=== PATIENT | female | born 1995 | race Caucasian/White ===

== ENCOUNTER 2020-08-25 | Outpatient (REF) | payer OTHER, SELFPAY ==
[2020-08-29 13:32] LABS: H Pylori Breath Test NOT DETECTED (NOT DETECTED)
== END 2020-08-25 00:01 | disposition home or self-care (01) ==
LOC: HO.LNP
PROVIDERS: Visit Provider Surgery
DX: Z01.818 Encounter for other preprocedural examination (principal)
CPT/HCPCS: 83013

== ENCOUNTER 2020-08-25 12:22 | Outpatient (REF) | payer OTHER, SELFPAY ==
--- NOTE | ~2020-08-25 | XR_ITS ---
EXAMINATION: XR CHEST CLINICAL INFORMATION: Shortness of breath COMPARISON: None TECHNIQUE: 2 views of the chest were obtained. FINDINGS: No significant abnormality is noted involving the heart, lungs, mediastinum, bony thorax or soft tissues. XR/XR chest 2V IMPRESSION: Unremarkable examination.
--- NOTE | 2020-08-25 14:41 | ECG_ITS ---
Test Reason : SOB Blood Pressure : / mmHG Vent. Rate : 065 BPM Atrial Rate : 065 BPM P-R Int : 138 ms QRS Dur : 082 ms QT Int : 382 ms P-R-T Axes : 017 013 019 degrees QTc Int : 397 ms Normal sinus rhythm Normal ECG When compared with ECG of 27-SEP-2018 19:17, Vent. rate has decreased BY 34 BPM Referred By: Margie Khan Electronically Signed By:MINOR ZHAO MD
[2020-08-25 15:12] LABS: MANUAL DIFF FLAG NO
[2020-08-25 15:18] LABS: Basophils Percent Auto 0.2 % (0-2); Eosinophils Absolute Auto 0.1 X10*3/uL (0.0-0.4); Eosinophils Percent Auto 0.6 % (0-4); Hematocrit 42.4 % (37-47); Hemoglobin 13.3 g/dl (12.0-16.0); Imm Gran Abs Auto 0.03 X10*3/uL (0.00-0.03); Imm Gran Pct Auto 0.4 % (0.0-0.4); Lymphocytes Absolute Auto 2.4 X10*3/uL (1.2-4.9); Lymphocytes Percent Auto 28.7 % (20-40); Mean Corpuscular HGB Conc 31.4 g/dl (31.0-35.0); Mean Corpuscular Hemoglobin 27.4 pg (27.0-33.0); Mean Corpuscular Volume 87.4 fL (80-98); Mean Platelet Volume 9.7 fL (9.4-12.3); Monocytes Absolute Auto 0.5 X10*3/uL (0.1-1.2); Monocytes Percent Auto 5.9 % (2-11); Neutrophils Absolute Auto 5.4 X10*3/uL (2.0-8.3); Neutrophils Percent Auto 64.2 % (45-73); Platelet Count 427 X10*3/uL (160-400); Red Blood Count 4.85 X10*6/uL (4.20-5.50); Red Cell Distribution Width 13.7 % (11.0-16.0); White Blood Count 8.3 X10*3/uL (4.8-10.8)
[2020-08-25 15:44] LABS: Alanine Aminotransferase 35 U/L (0-31); Albumin Level 4.6 g/dL (3.5-5.0); Alkaline Phosphatase 71 U/L (39-117); Anion Gap 15 (12-20); Aspartate Amino Transferase 19 U/L (5-31); Bilirubin Total 0.3 mg/dL (0.0-1.0); Blood Urea Nitrogen 10 mg/dL (9-16); C Reactive Protein 1.01 mg/dL (< or = 0.50); Calcium 9.5 mg/dL (8.4-10.2); Carbon Dioxide 27 mmol/L (22-29); Chloride 102 mmol/L (96-108); Cholesterol 180 mg/dL; Estimated Glomerular Filt Rate > 60; Glucose Fasting 84 mg/dL (60-99); HDL Cholesterol 36 mg/dL; Iron 50 mcg/dL (30-160); LDL Cholesterol Calculated 109 mg/dl; Percent Iron Saturation 15 % (15-50); Potassium 4.6 mmol/L (3.3-5.1); Sodium 139 mmol/L (135-145); Total Iron Binding Capacity 343 mcg/dL (228-428); Total Protein 7.7 g/dL (6.5-8.0); Triglycerides 176 mg/dL; Unsaturated Iron Binding 293 ug/dL
[2020-08-25 16:07] LABS: Thyroid Stimulating Hormone 1.65 uIU/mL (0.32-4.0); Vitamin D 25-OH Total 12.1 ng/mL (>30)
[2020-08-25 16:09] LABS: Vitamin B12 322 pg/mL (200-900)
[2020-08-28 16:47] LABS: Calcium (PTHI) 9.6 mg/dL (8.6-10.2); PTHI 69 pg/mL (14-64)
[2020-08-29 00:12] LABS: Zinc 87 mcg/dL (60-130)
[2020-08-29 09:11] LABS: Vitamin B1 10 nmol/L (8-30)
[2020-08-30 21:06] LABS: Vitamin A 47 mcg/dL (38-98)
== END 2020-08-25 12:23 | disposition home or self-care (01) ==
LOC: HO.LAB 12:22
PROVIDERS: PCP Family Medicine; Visit Provider Surgery
DX: Z01.818 Encounter for other preprocedural examination (principal); E66.9 Obesity, unspecified; Z68.39 Body mass index [BMI] 39.0-39.9, adult; R06.02 Shortness of breath
CPT/HCPCS: 36415; 71046; 80053; 80061; 82306; 82607; 83540; 83970; 84425; 84443; 84590; 84630; 85025; 86140; 93005; 99202

== ENCOUNTER → 2020-09-11 08:27 | Outpatient (BNVA) | payer OTHER, SELFPAY | PROVIDERS: PCP Family Medicine; Visit Provider Surgery | DX: E66.9 Obesity, unspecified (principal); Z68.38 Body mass index [BMI] 38.0-38.9, adult | CPT/HCPCS: 99212 ==

== ENCOUNTER → 2020-09-26 08:13 | Outpatient (BNVA) | payer OTHER, SELFPAY | PROVIDERS: PCP Family Medicine; Visit Provider Dietitian, Registered ==

== ENCOUNTER → 2020-10-09 13:05 | Outpatient (BNVA) | payer OTHER, SELFPAY | PROVIDERS: PCP Family Medicine; Visit Provider Dietitian, Registered ==

== ENCOUNTER → 2020-10-10 14:55 | Outpatient (BNVA) | payer OTHER, SELFPAY | PROVIDERS: PCP Family Medicine; Visit Provider Surgery | DX: E66.9 Obesity, unspecified (principal); Z68.37 Body mass index [BMI] 37.0-37.9, adult | CPT/HCPCS: 99212 ==

== ENCOUNTER → 2020-10-31 13:47 | Outpatient (BNVA) | payer OTHER, SELFPAY | PROVIDERS: PCP Family Medicine; Visit Provider Surgery | DX: E66.9 Obesity, unspecified (principal); Z68.37 Body mass index [BMI] 37.0-37.9, adult | CPT/HCPCS: 99212 ==

== ENCOUNTER 2020-11-24 13:44 | Outpatient (REF) | payer OTHER, SELFPAY ==
[2020-11-24 15:55] LABS: Vitamin D 25-OH Total 32.2 ng/mL (>30)
== END 2020-11-24 13:45 | disposition home or self-care (01) ==
LOC: HO.LAB 13:44
PROVIDERS: PCP Family Medicine; Visit Provider Surgery
DX: Z01.818 Encounter for other preprocedural examination (principal); E66.9 Obesity, unspecified; Z68.35 Body mass index [BMI] 35.0-35.9, adult; E55.9 Vitamin D deficiency, unspecified
CPT/HCPCS: 36415; 82306; 99212

== ENCOUNTER → 2020-12-07 12:50 | Outpatient (BNVA) | payer OTHER, SELFPAY | PROVIDERS: PCP Family Medicine; Visit Provider Physician Assistant | DX: E66.9 Obesity, unspecified (principal); Z68.35 Body mass index [BMI] 35.0-35.9, adult | CPT/HCPCS: 99212 ==

== ENCOUNTER → 2020-12-20 10:21 | Outpatient (BNVA) | payer OTHER, SELFPAY | PROVIDERS: PCP Family Medicine; Referring Provider Family Medicine; Visit Provider Surgery | DX: E66.9 Obesity, unspecified (principal); Z68.35 Body mass index [BMI] 35.0-35.9, adult | CPT/HCPCS: 99212 ==

== ENCOUNTER → 2020-12-22 13:55 | Outpatient (BNVA) | payer OTHER, SELFPAY | PROVIDERS: PCP Family Medicine; Visit Provider Physician Assistant ==

== ENCOUNTER 2021-01-03 08:36 | Inpatient (IN) | payer OTHER, SELFPAY ==
--- NOTE | 2020-12-27 12:08 | HO.ANESPROP2 ---
Documented by User: Hansa Quezada 01/02/21 11:48 HPI - Anesthesia Eval Consult details Narrative: 25yo F for Gastrectomy Sleeve, EGD, Poss Diaphragmatic Hernia, Possible Ventral Hernia, Possible Open WPW/SVT - No tx, follows with cardiology, cleared for surgery. Metoprolol prn tachycardia (cardiac note pending - multiple calls to jeweler apprentice, note from 12/12/20 visit still in draft form per office staff) No hx of general anesthesia. + severe motion sickness. Scop patch order for DOS. PMFSH Active Problems Active Problems: All Active Problems (Updated 12/27/20 @ 12:03 by Toya Chauhan) Shortness of breath (Acute) Pre-op evaluation (Acute) BMI 39.0-39.9,adult (Acute) Obesity (Acute) Vitamin D deficiency (Acute) BMI 38.0-38.9,adult (Acute) Depression with anxiety (Acute) BMI 37.0-37.9, adult (Acute) BMI 35.0-35.9,adult (Acute) Preoperative examination (Acute) Smoker (Acute) Past Medical History Medical History Asthma Depression Fatty liver History of anxiety PCOS (polycystic ovarian syndrome) Psoriasis Psoriatic arthritis SVT (supraventricular tachycardia) WPW (Rfbpt-Yepevasls-Cijjg syndrome) Family History Family History Mother No problems noted. Father Heart disease Asthma Sister No problems noted. Sister No problems noted. Sister Obesity Surgical History Surgical History No significant past surgical history Social History Social History Household Members: Spouse Housing: House Are you a primary care information associate to a significant other at home: No Do you presently have visiting nurse or other home services: No Alcohol intake: never Patient Tobacco Use Status: Former Tobacco user Quit Date: 12/20/20 Tobacco use type: Smokeless Tobacco Cigarette Packs Per Day: 1 Years Smoked: 1 Patient Interested in Nicotine Replacement: No Use of substances other than those prescribed or required for medical reasons: No Have you been hit, kicked, punched, or otherwise hurt by someone within the past year? If so, by whom?: No Are you DNR?: No Advance Directives: No Advance Directives Information Provided: No Advance Directives on File: No Recently lost weight without trying: No Eating poorly because of decreased appetite: No Nutrition Risks: No Nutritional Risk Patient : No FDLMP: 11/2020 : No Poor oral hygiene: No Meds Allergies Allergy/AdvReac Type Severity Reaction Status Date / Time No Known Allergies Allergy Verified 12/20/20 10:52 [No Known Allergies*] Home Medications Medication Instructions Recorded Confirmed Last Taken Type guselkumab 100 mg/mL subcutaneous 100 mg SUBCUT Q8W ml 08/25/20 12/27/20 Unknown History auto-injector metformin 500 mg tablet,extended 1,500 mg PO QPM 08/25/20 12/27/20 Unknown History release 24 hr metoprolol tartrate 25 mg tablet 25 mg PO BID PRN 08/25/20 12/27/20 Unknown History sertraline 50 mg tablet 50 mg PO BEDTIME tab 08/25/20 12/27/20 Unknown History multivitamin with minerals 1 tab PO TID 12/27/20 12/27/20 Unknown History [Hair,Skin and Nails] Exam Exam Date and Time: December 27, 2020 1208 Narrative Narrative: EKG 08/2020 Vent. Rate : 065 BPM Atrial Rate : 065 BPM P-R Int : 138 ms QRS Dur : 082 ms QT Int : 382 ms P-R-T Axes : 017 013 019 degrees QTc Int : 397 ms Normal sinus rhythm Normal ECG When compared with ECG of 27-SEP-2018 19:17, Vent. rate has decreased BY 34 BPM Airway Mallampati Class: II (TMJ, cannot open jaw fully) TM Dist: >3cm Neck ROM: Full Loose/Missing/Broken Teeth: No Heart: RRR Lungs: CTAB Other: Nasal piercing. Unable to remove. Associated risks reviewed. Assessment and Plan Assessment Anesthesia Assessment: Anesthesia Plan Discussed, Smoking Cess. Discussed and PAT Visit Documented by User: Shari Kramer 01/03/21 10:27 COUNTS INCLUDE 234 BEDS AT THE [facility] Past Medical History Medical History Asthma Depression Fatty liver History of anxiety PCOS (polycystic ovarian syndrome) Psoriasis Psoriatic arthritis SVT (supraventricular tachycardia) WPW (Rfpvp-Gbbyolofw-Ofjes syndrome) Family History Family History Mother No problems noted. Father Heart disease Asthma Sister No problems noted. Sister No problems noted. Sister Obesity Family history of problems with anesthesia: No Surgical History Surgical History No significant past surgical history History of Problems with Anesthesia: No Social History Social History Household Members: Spouse Housing: House Are you a primary care information associate to a significant other at home: No Do you presently have visiting nurse or other home services: No Alcohol intake: never Patient Tobacco Use Status: Former Tobacco user Quit Date: 12/20/20 Tobacco use type: Smokeless Tobacco Cigarette Packs Per Day: 1 Years Smoked: 1 Patient Interested in Nicotine Replacement: No Use of substances other than those prescribed or required for medical reasons: No Have you been hit, kicked, punched, or otherwise hurt by someone within the past year? If so, by whom?: No Are you DNR?: No Advance Directives: No Advance Directives Information Provided: No Advance Directives on File: No Recently lost weight without trying: No Eating poorly because of decreased appetite: No Nutrition Risks: No Nutritional Risk Patient : No FDLMP: 11/2020 : No Poor oral hygiene: No Meds Allergies Allergy/AdvReac Type Severity Reaction Status Date / Time No Known Allergies Allergy Verified 12/20/20 10:52 [No Known Allergies*] Home Medications Medication Instructions Recorded Confirmed Last Taken Type guselkumab 100 mg/mL subcutaneous 100 mg SUBCUT Q8W ml 08/25/20 12/27/20 Unknown History auto-injector metformin 500 mg tablet,extended 1,500 mg PO QPM 08/25/20 12/27/20 Unknown History release 24 hr metoprolol tartrate 25 mg tablet 25 mg PO BID PRN 08/25/20 12/27/20 Unknown History sertraline 50 mg tablet 50 mg PO BEDTIME tab 08/25/20 12/27/20 Unknown History multivitamin with minerals 1 tab PO TID 12/27/20 12/27/20 Unknown History [Hair,Skin and Nails] Exam Height,Weight and Vital Signs: Vital Signs Temp Pulse Resp BP Pulse Ox 01/03/21 08:35 97.1 F 95 16 139/74 98 Pertinent Lab Results Pertinent Lab Results: Lab Results 12/27/20 12/27/20 12/27/20 Range/Units 13:30 13:30 13:30 WBC 11.2 H (4.8-10.8) X10*3/uL RBC 4.89 (4.20-5.50) X10*6/uL Hgb 13.4 (12.0-16.0) g/dl Hct 41.6 (37-47) % MCV 85.1 (80-98) fL MCH 27.4 (27.0-33.0) pg MCHC 32.2 (31.0-35.0) g/dl RDW 14.2 (11.0-16.0) % Plt Count 408 H (160-400) X10*3/uL MPV 9.8 (9.4-12.3) fL Immature Gran % (Auto) 0.4 (0.0-0.4) % Neut % (Auto) 77.3 H (45-73) % Lymph % (Auto) 16.7 L (20-40) % [place] % (Auto) 5.0 (2-11) % Eos % (Auto) 0.4 (0-4) % Baso % (Auto) 0.2 (0-2) % Lymph # (Auto) 1.9 (1.2-4.9) X10*3/uL [place] # (Auto) 0.6 (0.1-1.2) X10*3/uL Eos # (Auto) 0.0 (0.0-0.4) X10*3/uL Baso # (Auto) 0.0 (0.0-0.2) X10*3/uL Abs Immat Gran (auto) 0.04 H (0.00-0.03) X10*3/uL Absolute Neuts (auto) 8.7 H (2.0-8.3) X10*3/uL Absolute Nucleated RBC 0.000 (0.0-0.012) X10*3/uL Nucleated RBC % (auto) 0.0 (0.0-0.2) /100WBC PT 12.8 (10.8-13.0) SEC INR 1.1 (0.9-1.1) APTT 38.4 H (24.1-38.0) SEC Sodium 136 (135-145) mmol/L Potassium 4.3 (3.3-5.1) mmol/L Chloride 105 (96-108) mmol/L Carbon Dioxide 22 (22-29) mmol/L Anion Gap 13 (12-20) BUN 10 (9-16) mg/dL Creatinine 0.62 (0.5-1.4) mg/dL Estim Creat Clear Calc 155.6 Estimated GFR > 60 Random Glucose 86 (60-115) mg/dL Calcium 9.4 (8.4-10.2) mg/dL Albumin 4.5 (3.5-5.0) g/dL Urine Color Urine Appearance Urine pH (5.0-8.0) Ur Specific [place] (1.005-1.025) Urine Protein (NEG-TRACE) MG/DL Urine Glucose (UA) (NEG) MG/DL Urine Ketones (NEG) MG/DL Urine Blood (NEG) Urine Nitrite (NEG) Ur Leukocyte Esterase (NEG) Urine Cotinine ng/mL Urine Test (NEGATIVE) Urine Nicotine ng/mL COVID-19 (PAM) (Negative) COVID-19 Clin Com Blood Type Antibody Screen 12/27/20 12/27/20 12/27/20 Range/Units 13:30 13:45 13:45 WBC (4.8-10.8) X10*3/uL RBC (4.20-5.50) X10*6/uL Hgb (12.0-16.0) g/dl Hct (37-47) % MCV (80-98) fL MCH (27.0-33.0) pg MCHC (31.0-35.0) g/dl RDW (11.0-16.0) % Plt Count (160-400) X10*3/uL MPV (9.4-12.3) fL Immature Gran % (Auto) (0.0-0.4) % Neut % (Auto) (45-73) % Lymph % (Auto) (20-40) % [place] % (Auto) (2-11) % Eos % (Auto) (0-4) % Baso % (Auto) (0-2) % Lymph # (Auto) (1.2-4.9) X10*3/uL [place] # (Auto) (0.1-1.2) X10*3/uL Eos # (Auto) (0.0-0.4) X10*3/uL Baso # (Auto) (0.0-0.2) X10*3/uL Abs Immat Gran (auto) (0.00-0.03) X10*3/uL Absolute Neuts (auto) (2.0-8.3) X10*3/uL Absolute Nucleated RBC (0.0-0.012) X10*3/uL Nucleated RBC % (auto) (0.0-0.2) /100WBC PT (10.8-13.0) SEC INR (0.9-1.1) APTT (24.1-38.0) SEC Sodium (135-145) mmol/L Potassium (3.3-5.1) mmol/L Chloride (96-108) mmol/L Carbon Dioxide (22-29) mmol/L Anion Gap (12-20) BUN (9-16) mg/dL Creatinine (0.5-1.4) mg/dL Estim Creat Clear Calc Estimated GFR Random Glucose (60-115) mg/dL Calcium (8.4-10.2) mg/dL Albumin (3.5-5.0) g/dL Urine Color YELLOW Urine Appearance CLEAR Urine pH 6.0 (5.0-8.0) Ur Specific [place] 1.025 (1.005-1.025) Urine Protein NEG (NEG-TRACE) MG/DL Urine Glucose (UA) NEG (NEG) MG/DL Urine Ketones NEG (NEG) MG/DL Urine Blood NEG (NEG) Urine Nitrite NEG (NEG) Ur Leukocyte Esterase NEG (NEG) Urine Cotinine ng/mL Urine Test NEGATIVE (NEGATIVE) Urine Nicotine ng/mL COVID-19 (PAM) (Negative) COVID-19 Clin Com Blood Type A Positive Antibody Screen NEGATIVE 12/27/20 01/03/21 01/03/21 Range/Units 13:45 08:10 08:10 WBC (4.8-10.8) X10*3/uL RBC (4.20-5.50) X10*6/uL Hgb (12.0-16.0) g/dl Hct (37-47) % MCV (80-98) fL MCH (27.0-33.0) pg MCHC (31.0-35.0) g/dl RDW (11.0-16.0) % Plt Count (160-400) X10*3/uL MPV (9.4-12.3) fL Immature Gran % (Auto) (0.0-0.4) % Neut % (Auto) (45-73) % Lymph % (Auto) (20-40) % [place] % (Auto) (2-11) % Eos % (Auto) (0-4) % Baso % (Auto) (0-2) % Lymph # (Auto) (1.2-4.9) X10*3/uL [place] # (Auto) (0.1-1.2) X10*3/uL Eos # (Auto) (0.0-0.4) X10*3/uL Baso # (Auto) (0.0-0.2) X10*3/uL Abs Immat Gran (auto) (0.00-0.03) X10*3/uL Absolute Neuts (auto) (2.0-8.3) X10*3/uL Absolute Nucleated RBC (0.0-0.012) X10*3/uL Nucleated RBC % (auto) (0.0-0.2) /100WBC PT (10.8-13.0) SEC INR (0.9-1.1) APTT (24.1-38.0) SEC Sodium (135-145) mmol/L Potassium (3.3-5.1) mmol/L Chloride (96-108) mmol/L Carbon Dioxide (22-29) mmol/L Anion Gap (12-20) BUN (9-16) mg/dL Creatinine (0.5-1.4) mg/dL Estim Creat Clear Calc Estimated GFR Random Glucose (60-115) mg/dL Calcium (8.4-10.2) mg/dL Albumin (3.5-5.0) g/dL Urine Color Urine Appearance Urine pH (5.0-8.0) Ur Specific [place] (1.005-1.025) Urine Protein (NEG-TRACE) MG/DL Urine Glucose (UA) (NEG) MG/DL Urine Ketones (NEG) MG/DL Urine Blood (NEG) Urine Nitrite (NEG) Ur Leukocyte Esterase (NEG) Urine Cotinine 22 ng/mL Urine Test NEGATIVE (NEGATIVE) Urine Nicotine 6 ng/mL COVID-19 (PAM) Negative (Negative) COVID-19 Clin Com See Note Blood Type Antibody Screen Airway Mallampati Class: III (Limited mouth opening-jaw problems) TM Dist: >3cm Neck ROM: Full Loose/Missing/Broken Teeth: No Heart: RRR Lungs: CTAB Assessment and Plan Assessment Anesthesia Assessment: Anesthesia Plan Discussed and Chart Reviewed Final Anesthetic Review NPO: Yes ASA Class: III Final Preanesthetic Review: No Changes in Pt Med Stat, Meds/Allgs Chart Reviewed, Consent Obtained/Reviewed and Anes Risks/Benef Reviewed Patient Risk: Intermediate Procedure Risk: Intermediate Assessment/Block/Sedation in SS: Assess/Block/Sedation-SS Anesthetic Plan Anesthetic Plan: GA Disposition: Inp. Admit - Standard Bed
[2020-12-27 12:09] VITALS: BP 118/61; PULSE 71; RESP 20; O2SAT 98; BMI 36.2
--- NOTE | 2020-12-27 13:20 | ECG_ITS ---
Test Reason : SOB Blood Pressure : / mmHG Vent. Rate : 065 BPM Atrial Rate : 065 BPM P-R Int : 138 ms QRS Dur : 082 ms QT Int : 364 ms P-R-T Axes : 026 016 024 degrees QTc Int : 378 ms Normal sinus rhythm Normal ECG When compared with ECG of 25-AUG-2020 14:48, No significant change was found Referred By: Margie Khan Electronically Signed By:HEAVENLY RIVAS
[2020-12-27 14:19] LABS: MANUAL DIFF FLAG NO
[2020-12-27 14:27] LABS: Basophils Percent Auto 0.2 % (0-2); Eosinophils Percent Auto 0.4 % (0-4); Hematocrit 41.6 % (37-47); Hemoglobin 13.4 g/dl (12.0-16.0); Imm Gran Abs Auto 0.04 X10*3/uL (0.00-0.03); Imm Gran Pct Auto 0.4 % (0.0-0.4); Lymphocytes Absolute Auto 1.9 X10*3/uL (1.2-4.9); Lymphocytes Percent Auto 16.7 % (20-40); Mean Corpuscular HGB Conc 32.2 g/dl (31.0-35.0); Mean Corpuscular Hemoglobin 27.4 pg (27.0-33.0); Mean Corpuscular Volume 85.1 fL (80-98); Mean Platelet Volume 9.8 fL (9.4-12.3); Monocytes Absolute Auto 0.6 X10*3/uL (0.1-1.2); Neutrophils Absolute Auto 8.7 X10*3/uL (2.0-8.3); Neutrophils Percent Auto 77.3 % (45-73); Platelet Count 408 X10*3/uL (160-400); Red Blood Count 4.89 X10*6/uL (4.20-5.50); Red Cell Distribution Width 14.2 % (11.0-16.0); White Blood Count 11.2 X10*3/uL (4.8-10.8)
[2020-12-27 14:35] LABS: INTERNATIONAL NORM RATIO 1.1 (0.9-1.1); Prothrombin Time 12.8 SEC (10.8-13.0)
[2020-12-27 14:38] LABS: Partial Thromboplastin Time 38.4 SEC (24.1-38.0)
[2020-12-27 14:43] LABS: Albumin Level 4.5 g/dL (3.5-5.0); Anion Gap 13 (12-20); Blood Urea Nitrogen 10 mg/dL (9-16); Calcium 9.4 mg/dL (8.4-10.2); Carbon Dioxide 22 mmol/L (22-29); Chloride 105 mmol/L (96-108); Creatinine Clr Calc Pharmacy 155.6; Estimated Glomerular Filt Rate > 60; Glucose Random 86 mg/dL (60-115); Potassium 4.3 mmol/L (3.3-5.1); Sodium 136 mmol/L (135-145)
[2020-12-27 14:46] LABS: Glucose Urine UA NEG (NEG); Leukocyte Esterase Urine NEG (NEG); Nitrite Urine NEG (NEG); Specific Gravity - Urine 1.025 (1.005-1.025); Urine Blood NEG (NEG); Urine Ketones NEG (NEG); Urine Protein NEG (NEG-TRACE)
[2020-12-27 14:48] LABS: Appearance Urine CLEAR; Color Urine YELLOW; UPreg QC Valid YES; Urine Pregnancy NEGATIVE (NEGATIVE)
--- NOTE | 2021-01-02 13:31 | MHC.SHP ---
Pre-Procedural Eval Section B Chief Complaint: Obesity Allergies: Allergies Allergy/AdvReac Type Severity Reaction Status Date / Time No Known Allergies Allergy Verified 12/20/20 10:52 [No Known Allergies*] Plan I have reviewed the history and physical and performed a pertinent physical examination on my patient. No changes have occurred unless specified.
[2021-01-02 17:46] LABS: Cotinine, U 22 ng/mL; Nicotine, U 6 ng/mL
[2021-01-03] VITALS (18 sets, daily range): BP systolic 131–153; BP diastolic 74–99; PULSE 58–112; RESP 16–20; TEMP 36.2–36.6; O2SAT 94–100
[2021-01-03 08:30] LABS: UPreg QC Valid YES
[2021-01-03 08:31] LABS: Urine Pregnancy NEGATIVE (NEGATIVE)
[2021-01-03 08:51] LABS: COVID-19 Test Negative (Negative); IDNOW Serial# 9DD0AD1C
[2021-01-03] MEDS: Scopolamine 1.5 MG PATCH.TD.3 TRANSDERMA (09:14)
[2021-01-03] MEDS: Lactated Ringers 1,000 ML 100 ML IVCONT (10:54)
--- NOTE | 2021-01-03 10:54 | PC.NURSE ---
During intake, patient stated that she does not do well with electrolytes and that the last time she had electrolyte water, she went into SVT. 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 Dr. Cardenas notified of this. Okay to proceed with Lactated Ringers via IV. No new orders.
--- NOTE | 2021-01-03 13:04 | PM.OP ---
Brief Operative Note Date of Service: 01/03/21 Pre-op diagnosis: Obesity, BMI 35.6, heart disease, polycystic ovarian syndrome Post-op diagnosis: other (Same and hiatal hernia) Procedure: Laparoscopic sleeve gastrectomy, hiatal hernia repair, Ethan block, and intraoperative endoscopy Implants: covidien krystyna Surgeon: Margie Khan MD Anesthesia: GETA Was an Erp Implementation Consultant used for this Procedure?: Yes Erp Implementation Consultant: Caroline Patel Estimated blood loss (mL): 5 Pathology: other (Partial gastrectomy) Condition: stable Disposition: PACU
--- NOTE | 2021-01-03 13:07 | W.PM.OPN ---
Operative Note Operative Note Date of Service: 01/03/21 Narrative: Patient was brought into the operating room and placed on the operating room table in the supine position. General anesthesia was induced. Normal DVT prophylaxis was instituted and the patient received 2 grams of cefotetan preoperatively. The abdomen was then prepped and draped in the normal sterile fashion. A safety time-out was performed. A mixture of 1% lidocaine with epinephrine and ?% Marcaine plain was used to anesthetize the planned incision site in the left upper quadrant. A #11 scalpel was used to make a 5 mm left upper quadrant transverse incision through which a veress needle was placed. Three pops were heard going through the fascia. A saline drop test was used to confirm that the veress needle was intraabdominal. An optiview technique was then used to place a 5mm port in the left upper quadrant. A 5 mm 30 degree laproscope was then placed through this port and the abdominal cavity was surveyed and was normal. The patient was placed in reverse Trendelenburg positioning. A rachid liver retractor was then placed in the subxyphoid position and it was used to hold up the left lobe of the liver to the abdominal wall. This was secured to the bed using the liver retractor layne. A LUZMARIA block was then performed for pain control on the right side of the abdomen. A 5 mm port was placed in the right upper quadrant near the falciform ligament. A 12 mm port was then placed in the mid epigastrium. One additional 5 mm port was placed in the left upper quadrant just to the left of the placement of the first port. I then performed a LUZMARIA block on the left side of the abdomen. I then removed the epigastric fat pad; there was a small anterior hiatal hernia noted. I reapproximated the left and right crura with a total of 2 stitches of 2-0 ethibond and a laparoscopic knot pusher. There was no residual hiatal hernia. I then opened up the angle of His. We then gained entry into the lesser sac about 4-5 cm from the pylorus. I had anesthesia place a 34 Green[place]ic orogastric tube into the distal antrum to use as a sizing tool for gastric pouch size. I divided the short gastric vessels up to the angle of His. We then started the creation of the gastric pouch by firing a 60 mm purple load endostapler up the stomach about 4-5 cm from the pylorus. We completed the creation of the gastric pouch using a total of 4 firings of a 60 mm purple load stapler. We had anesthesia remove the orogastric tube, then we clamped across the distal antrum using a fired 60 mm endostapler. We flattened the patient and then instilled normal saline surrounding the newly created staple line. I then performed an on-table endoscopy. I passed the gastroscopy into the posterior oropharynx and down the esophagus evaluating the esophageal mucosa which was normal. There was no evidence of hiatal hernia. I passed the gastroscope into the gastric pouch and insufflated the gastric pouch. There was healthy pink mucosa and no evidence of active bleeding. There was no evidence of leak on laparoscopy. I desufflated the gastric pouch and removed the endoscope. I removed the endostapler from the abdomen and suctioned the fluid from the left upper quadrant. I then removed the partial gastrectomy specimen through the epigastric 12 mm port site. I reapproximated the 12 mm port using a 0 maxon suture with a laparoscopic suture passer. I instilled local anesthetic into the fascial closure site and tied the suture down at a pressure of 8-10 mm of Hg. There was no residual fascial defect. We removed the liver retractor and the left upper quadrant 5 mm ports under direct visualization. There was no evidence of any active bleeding. I desufflated the abdomen through the last remaining port and removed the laparoscope and 5 mm port. We reapproximated all incisions with a 4-0 monocryl subcuticular stitch. We cleaned and dried the abdominal skin and applied dermabond skin glue. All count were correct at the end of the case. The patient was awake and in stable condition prior to extubation and transfer to the recovery room.
[2021-01-03] MEDS: HYDROmorphone HCl 0.5 MG/0.5 ML SYRINGE 0.25 MG IVPUSH ×6 (13:12→20:30)
[2021-01-03] MEDS: ondansetron HCL 4 MG/2 ML VIAL IVPUSH ×2 (13:14→21:37)
--- NOTE | 2021-01-03 13:19 | PM.DS ---
DS: Providers Provider Date of Service: 01/04/21 Date of admission: 01/03/21 08:36 Primary care physician: Micheal Camilo MD DS: Medications Discharge Medications Home Medications: Home Medications Medication Instructions Recorded Confirmed guselkumab 100 mg/mL subcutaneous 100 mg SUBCUT Q8W ml 08/25/20 12/27/20 auto-injector metformin 500 mg tablet,extended 1,500 mg PO QPM 08/25/20 12/27/20 release 24 hr metoprolol tartrate 25 mg tablet 25 mg PO BID PRN 08/25/20 12/27/20 sertraline 50 mg tablet 50 mg PO BEDTIME tab 08/25/20 12/27/20 multivitamin with minerals 1 tab PO TID 12/27/20 12/27/20 [Hair,Skin and Nails] Previous Rx's Medication Instructions Recorded acetaminophen 500 mg tablet 1,000 mg PO Q6H PRN #30 tab 12/20/20 docusate sodium 100 mg capsule 100 mg PO BID #30 cap 12/20/20 famotidine 20 mg tablet 20 mg PO DAILY #30 tab 12/20/20 ondansetron HCl 4 mg tablet 4 mg PO Q6H PRN #30 tab 12/20/20 simethicone 80 mg chewable tablet 80 mg PO TID-QID PRN #30 tab 12/20/20 DS: Summary Time Spent with Patient Time attestation: Total time spent providing and/or coordinating discharge services: Discharge coordination time: Greater than 30 minutes Quality: Stroke Does the patient have a stroke diagnosis?: No Physical Exam Vital Signs: Vital Signs: Last Vital Signs Temp 97.1 F 01/03/21 13:04 Pulse 102 H 01/03/21 13:09 Resp 19 01/03/21 13:12 BP 147/79 H 01/03/21 13:09 Pulse Ox 99 01/03/21 13:09 Body Mass Index 36.2 DS: Data Data Completed and Pending Pending studies at discharge: Pending at discharge 01/03/21 12:37 Surgical [PTH] Routine Labs on day of discharge: Laboratory Results - last 24 hr 12/27/20 01/03/21 01/03/21 13:45 08:10 08:10 Urine Cotinine 22 Urine Test NEGATIVE Urine Nicotine 6 COVID-19 (PAM) Negative COVID-19 Clin Com See Note Discharge Plan Discharge Patient Disposition: Home, Self-Care Discharge Diagnosis: obesity s/p laparoscopic sleeve gastrectomy Referrals: Micheal Camilo MD [Primary Care Provider] - 1 Week Discharge Medications: Continued multivitamin with minerals [Hair,Skin and Nails] Tablet 1 tab PO TID RF: 0 metoprolol tartrate 25 mg tablet 25 mg PO BID PRN (Reason: Tachycardia) RF: 0 sertraline 50 mg tablet 50 mg PO BEDTIME RF: 0 acetaminophen [Tylenol Extra Strength] 500 mg tablet 1,000 mg PO Q6H PRN (Reason: pain) Qty: 30 RF: 1 famotidine [Pepcid AC] 20 mg tablet 20 mg PO DAILY Qty: 30 RF: 1 simethicone [Gas Relief (simethicone)] 80 mg tablet,chewable 80 mg PO TID-QID PRN (Reason: abdominal distention) Qty: 30 RF: 1 ondansetron HCl [Zofran] 4 mg tablet 4 mg PO Q6H PRN (Reason: nausea and vomiting) Qty: 30 RF: 1 docusate sodium [Colace] 100 mg capsule 100 mg PO BID Qty: 30 RF: 1 Discontinued metformin 500 mg tablet extended release 24 hr 1,500 mg PO QPM RF: 0 guselkumab 100 mg/mL auto-injector 100 mg subcut Q8W RF: 0 Discharge Orders: Discharge Order (Routine); Ordered 01/04/21 Ordered By: Caroline Patel Diet: other Activity on Discharge: No heavy lifting Stand Alone Forms: Patient Portal Discharge page Activity Restrictions/Additional Instructions: Discharge Instructions 1. Please call your doctor or come back to the emergency room should any new symptoms arise. 2. You will receive a courtesy call from [facility] 24-48 hours after discharge. 3. Activity: abstain from alcohol, practice limited stair climbing, no bending, no driving, no exercise, no illicit substances, no lifting, no sex, no tub bath, no work. 4. Diet: continue stage 3 protein shakes until your [address] Khan. 5. Dressing Change/Wound Care: Your incision is covered by surgical glue. If the area is tender, you may apply an ice pack for short intervals (no more than 20 minutes on, followed by at least 20 minutes off). Do not apply heat. Do not use creams, lotions, or topical antibiotics unless instructed to do so by your surgeon. These can cause infection or allergic reaction. 6. Call your doctor if: - Your temperature exceeds 101.5 F - You experience excessive pain or swelling - You have an unexpected reaction to medication - You have excessive bleeding - You experience continued vomiting/nausea - Your incision begins to separate - Your incision shows signs of infection such as increased redness, swelling, excessive pain, heat, or drainage (light blood or clear fluid is normal) 7. General instructions: - No lifting greater than 5 lbs for the next 4 weeks. - No driving within 24 hours of taking narcotic pain medications. - If you do not move your bowels in the next 2 days, please take milk of magnesia over the counter. Please follow the post op diet and do not advance your diet until you are seen in the office in about 2 weeks. - Please walk around your home every hour or two to prevent blood clots from forming in your legs. You do not need to wake from sleeping to walk. - Please sleep in a bed or couch to prevent kinking at the hips and knees. - Please take your incentive spirometer (your lung hris administrator) home with you and use it for the next few days to prevent pneumonias. - You may shower, no hot tubs, baths or swimming pools. - Please call the office with any questions or concerns such as increasing abdominal pain, fever, chills, shortness of breath, chest pain, leg pain or swelling, or redness or drainage from your incisions. - Please stay on stage 3 diet which includes sugar free clear liquids such as ice pops and jello and broth and crystal light. Avoid all carbonation. Please drink 3 protein shakes with at least 25-30 grams of protein daily or 3 of the Celebrate 4:1 shakes which can be purchased in our office. The Celebrate shakes have all of the bariatric vitamins you need if you consume these shakes. If you are drinking other protein shakes, you will need to purchase the Celebrate multivitamins and calcium that we provide in the office (they will provide all the vitamins you need). Please make sure you are consuming at least 40-60 ounces of water in addition to your 3 protein shakes daily. 8. Do not hesitate to contact the office with any questions at . The patient's medical history has been reviewed and they are considered low risk for post op DVT and therefore DVT prophylaxis is not considered necessary. Travel after surgery was reviewed. The patient has not disclosed any travel plans during the first 30 days after surgery and they have been advised that within the first 30 days after surgery any bus, plane, train or car travel over 2 hours in duration is contraindicated due to the possibility of developing blood clots from immobility. Any travel, needs to include periods of ambulation of 10 minutes in duration every 2 hours. The patient was instructed to discuss any plans for travel during this period with their bariatric surgeon. Discharge Summary Date of Service: 01/04/21 Pre-op diagnosis: Obesity, BMI 35.6, heart disease, polycystic ovarian syndrome Post-op diagnosis: other (Same and hiatal hernia) Procedure: Laparoscopic sleeve gastrectomy, hiatal hernia repair, Ethan block, and intraoperative endoscopy Discharge Medications: 1. Simethicone 80mg tablet chewable (Si tablet every 6 hours orally for 7 days, #28, 1 RF) q4h prn gas 2. Acetaminophen 500 mg tablet (Si tablets as needed every 6 hours orally for 30 days, #240, 0 RF) 3. Ondansetron 4 mg tablet disintegrating (Si tablet every 6 hours orally for 7 days, #28, 1 RF) 4. Colace 100 mg capsule (Si capsule twice a day for 30 days, #60, 2 RF) 5. Pepcid 20 mg chewable tablet (Si tablet twice a day for 30 days, #60, 3 RF) Discharge Instructions: The patient should continue on the stage III bariatric diet, which includes 3 protein shakes of at least 20-30g of protein on a daily basis. The patient was encouraged to avoid drinking liquids with her protein shakes. They should wait 30-45 minutes in between her meals and drinking water. She should drink at least 40-60 ounces of water on a daily basis. They should ambulate while at home to avoid any blood clots in her lower extremities. They should call with any questions or concerns such as increase in abdominal pain, persistent nausea, vomiting, redness and drainage from her incisions, fever, chills, shortness of breast, or chest pain beyond what is normal for her. The patient should avoid all heavy lifting greater than 5 pounds for the next 4 weeks. The patient is already scheduled to follow up with me in 2 weeks time, but should call the office with any questions prior to that follow up appointment. The patient should not advance their diet until they are seen in the office for the 2 week appointment. Hospital Course: The patient was admitted after undergoing LSG and HH repair. They were started on stage II (1 oz of fluid every 15 minutes) on POD #0. The next morning they were evaluated and started on stage III diet (protein shakes). All labs were within normal limits. On post-operative day #1 she was feeling better, nausea and epigastric pain improved and they were tolerating stage III bariatric diet well. The patient was discharged home. Discharge Disposition: Home. Care Plan Goals: weight loss Health Concerns: obesity Plan of Treatment: sleeve gastrectomy Assessment: 1 day s/p LSG
--- NOTE | 2021-01-03 13:20 | PM.PNGS ---
Subjective Subjective Date of Service: 01/04/21 <Caroline Patel PA-C - Last Filed: 01/04/21 09:55> 01/04/21 <Margie Khan MD - Last Filed: 01/04/21 09:25> Interval history: Pod #1 s/p laparoscopic sleeve gastrectomy. Doing well. Tolerating stage 3 diet, ambulating in hallway. Pain well controlled. Denies nausea or vomiting. Vitals and labs reviewed and are within limit for post op day 1. On exam, patient is well appearing, abdomen is soft, nd, mild appropriate incisional tenderness. Incisions c/d/i with dermabond in place. Plan: d/c home today. Follow up with me in 2 weeks. <Caroline Patel PA-C - Last Filed: 01/04/21 09:55> patient seen and examined and agree with physician certified medical technician assistant assessment physical exam and plan. Patient doing well will be discharged home today. <Margie Khan MD - Last Filed: 01/04/21 09:25> Physical Exam Vital Signs: Vital Signs: Last Vital Signs Temp 97.1 F 01/03/21 13:04 Pulse 102 H 01/03/21 13:09 Resp 19 01/03/21 13:12 BP 147/79 H 01/03/21 13:09 Pulse Ox 99 01/03/21 13:09 Body Mass Index 36.2 <Caroline Patel PA-C - Last Filed: 01/04/21 09:55> Const: General: cooperative, comfortable, no acute distress, alert and awake <Caroline Patel PA-C - Last Filed: 01/04/21 09:55> Nutritional Appearance: obese <Caroline Patel PA-C - Last Filed: 01/04/21 09:55> GI: Inspection: Yes normal to inspection, No distended and Yes incision (clean, dry, intact, dermabond in place) <Caroline Patel PA-C - Last Filed: 01/04/21 09:55> Palpation (GI): Soft to palpation and Tenderness to palpation present (GI) (mild appropriate incisional tenderness) <Caroline Patle PA-C - Last Filed: 01/04/21 09:55> Extrem: Right lower extremity: lower leg Details: no tenderness; no edema <Caroline Patel PA-C - Last Filed: 01/04/21 09:55> Left lower extremity: lower leg Details: no tenderness; no edema <Caroline Patel PA-C - Last Filed: 01/04/21 09:55> Progress Note: A&P Assessment and plan (1) Obesity: Status: Acute <Caroline Patel PA-C - Last Filed: 01/04/21 09:55> (2) Hiatal hernia: Status: Acute <Caroline Patel PA-C - Last Filed: 01/04/21 09:55> (3) History of repair of hiatal hernia: Status: Acute <Caroline Patel PA-C - Last Filed: 01/04/21 09:55> (4) S/P laparoscopic sleeve gastrectomy: Status: Acute <Caroline Patel PA-C - Last Filed: 01/04/21 09:55> Assessment and Plan: d/c home today. Follow up in 2 weeks. <Caroline Patel PA-C - Last Filed: 01/04/21 09:55> Fall Risk Details Current Medications: Current Medications Generic Name Dose Route Start Last Admin Trade Name Freq PRN Reason Stop Dose Admin Albuterol Sulfate 2.5 mg 01/03/21 08:03 Albuterol Sulfate (0.083%) 2.5 Mg/3 Ml Vial.Neb INHALE ONCE PRN Shortness of Breath/Wheezing Famotidine 20 mg 01/03/21 21:00 Famotidine/Pf 20 Mg/2 Ml Vial IVPUSH BID TOBY Fentanyl 25 mcg 01/03/21 10:28 Fentanyl Citrate/Pf 100 Mcg/2 Ml Vial IVPUSH Q5M PRN Pain, Moderate (Pain Scale 4-6 Hydromorphone HCl 0.25 mg 01/03/21 10:28 01/03/21 13:12 Hydromorphone Hcl 0.5 Mg/0.5 Ml Syringe IVPUSH 0.25 mg Q5M PRN Administration Pain, Severe (Pain Scale 7-10) Hydromorphone HCl 0.25 mg 01/03/21 13:10 Hydromorphone Hcl 0.5 Mg/0.5 Ml Syringe IVPUSH Q4H PRN Pain, Severe (Pain Scale 7-10) Lactated Ringer's 1,000 mls @ 100 mls/hr 01/03/21 08:15 01/03/21 10:54 Lr IVCONT 100 mls/hr .Q10H TOBY Administration Promethazine HCl 6.25 mg/ 50.25 mls @ 201 mls/hr 01/03/21 10:28 Sodium Chloride IV ONCE PRN Nausea and Vomiting Lactated Ringer's 1,000 mls @ 125 mls/hr 01/03/21 13:15 Lr IVCONT .Q8H TOBY Cefotetan Disodium 2 gm/ 50 mls @ 100 mls/hr 01/03/21 13:10 Sodium Chloride IV 01/03/21 13:39 POSTOP ONE Acetaminophen 1,000 mg in 100 mls @ 16.7 mls/hr 01/03/21 13:15 Ofirmev IV .Q6H TOBY Metoclopramide HCl 10 mg 01/03/21 13:10 Metoclopramide Hcl 10 Mg/2 Ml Vial IVPUSH Q6H PRN Nausea Metoprolol Tartrate 25 mg 01/03/21 13:16 Metoprolol Tartrate 25 Mg Tablet PO BID PRN Tachycardia Protocol Ondansetron HCl 4 mg 01/03/21 10:28 01/03/21 13:14 Ondansetron Hcl 4 Mg/2 Ml Vial IVPUSH 4 mg ONCE PRN Administration Nausea and Vomiting Ondansetron HCl 4 mg 01/03/21 13:15 Ondansetron Hcl 4 Mg/2 Ml Vial IVPUSH Q8H [facility] Sodium Chloride 3 ml 01/03/21 16:00 0.9 % Sodium Chloride Flush 3 Ml [facility] <Caroline Patel PA-C - Last Filed: 01/04/21 09:55> Time Spent With Patient Time: Total time spent is greater than 50% in coordination of care (as documented) at patient's floor/unit and/or counseling patient: <Caroline Patel PA-C - Last Filed: 01/04/21 09:55> Time with patient: less than 15 minutes <Margie Khan MD - Last Filed: 01/04/21 09:25> Procedures Date of Service Date of Service: 01/04/21 <Margie Khan MD - Last Filed: 01/04/21 09:25> Quality Stroke Does the patient have a stroke diagnosis?: No <Margie Khan MD - Last Filed: 01/04/21 09:25> VTE Prior VTE?: No <Margie Khan MD - Last Filed: 01/04/21 09:25> VTE Risk Level:: Surgical - moderate <Margie Khan MD - Last Filed: 01/04/21 09:25> VTE Device Contraindication: N/A - Device Ordered <Margie Khan MD - Last Filed: 01/04/21 09:25> VTE Drug Contraindication: Treatment Not Indicated <Margie Khan MD - Last Filed: 01/04/21 09:25>
[2021-01-03] MEDS: fentaNYL citrate/PF 100 MCG/2 ML VIAL 25 MCG IVPUSH (14:25)
[2021-01-03] MEDS: 0.9 % Sodium Chloride Flush 3 ML SYRINGE IVFLUSH ×2 (15:27→21:37)
[2021-01-03] MEDS: Lactated Ringers 1,000 ML 125 ML IVCONT ×2 (15:27→23:07)
[2021-01-03] MEDS: Famotidine/PF 20 MG/2 ML VIAL IVPUSH (21:37)
[2021-01-03] MEDS: cefoTEtan disodium 2 GM in 0.9 % Sodium Chloride 50 ML IV (23:02)
[2021-01-04] MEDS: Metoclopramide HCl 10 MG/2 ML VIAL IVPUSH (00:11)
[2021-01-04] MEDS: HYDROmorphone HCl 0.5 MG/0.5 ML SYRINGE 0.25 MG IVPUSH (00:38)
[2021-01-04 04:00] VITALS: BP 112/56; PULSE 55; RESP 20; TEMP 36.9; O2SAT 98
[2021-01-04] MEDS: ondansetron HCL 4 MG/2 ML VIAL IVPUSH (06:10)
[2021-01-04] MEDS: Lactated Ringers 1,000 ML 125 ML IVCONT (06:10)
[2021-01-04 06:51] LABS: MANUAL DIFF FLAG NO
[2021-01-04 06:58] LABS: Basophils Percent Auto 0.1 % (0-2); Hematocrit 37.5 % (37-47); Hemoglobin 12.2 g/dl (12.0-16.0); Imm Gran Abs Auto 0.09 X10*3/uL (0.00-0.03); Imm Gran Pct Auto 0.5 % (0.0-0.4); Lymphocytes Absolute Auto 2.2 X10*3/uL (1.2-4.9); Lymphocytes Percent Auto 12.2 % (20-40); Mean Corpuscular HGB Conc 32.5 g/dl (31.0-35.0); Mean Corpuscular Hemoglobin 27.7 pg (27.0-33.0); Mean Platelet Volume 9.7 fL (9.4-12.3); Monocytes Percent Auto 5.7 % (2-11); Neutrophils Absolute Auto 14.5 X10*3/uL (2.0-8.3); Neutrophils Percent Auto 81.5 % (45-73); Platelet Count 444 X10*3/uL (160-400); Red Blood Count 4.41 X10*6/uL (4.20-5.50); Red Cell Distribution Width 14.1 % (11.0-16.0); White Blood Count 17.8 X10*3/uL (4.8-10.8)
[2021-01-04 07:25] LABS: Anion Gap 13 (12-20); Blood Urea Nitrogen 7 mg/dL (9-16); Calcium 9.1 mg/dL (8.4-10.2); Carbon Dioxide 23 mmol/L (22-29); Chloride 106 mmol/L (96-108); Creatinine Clr Calc Pharmacy 137.9; Estimated Glomerular Filt Rate > 60; Glucose Random 90 mg/dL (60-115); Potassium 4.4 mmol/L (3.3-5.1); Sodium 138 mmol/L (135-145)
[2021-01-04 07:28] VITALS: BP 119/74; PULSE 56; RESP 18; TEMP 36.2; O2SAT 98
[2021-01-04] MEDS: Famotidine/PF 20 MG/2 ML VIAL IVPUSH (08:25)
--- NOTE | 2021-01-04 09:45 | MHC.CM.PN ---
CM MET WITH PT WHO REPORTS SHE LIVES WITH HER S/O, IS INDEPENDENT AT BASELINE, HAS NO DME AND NO SERVICES. PT CONFIRMS HER PCP IS VERN MCFADDEN. PT COMPLETED A HCP THIS MORNING NAMING HER MOTHER, PRIYANKA PIERRE ([phone]) AND HER S/O SYED DALY ([phone]) HER PRIMARY AND ALTERNATE AGENTS RESPECTIVELY. PT WILL DC HOME TODAY WITH NO SERVICES PTS S/O WILL TRANSPORT
--- NOTE | 2021-01-04 10:20 | HO.POSTANES ---
Post Anesthesia Evaluation Post Anesthesia Evaluation Vital Signs: Vital Signs Temp Pulse Resp BP Pulse Ox 01/04/21 07:28 97.2 F 56 18 119/74 98 01/04/21 04:00 98.4 F 55 20 112/56 L 98 01/03/21 23:55 97.9 F 58 18 131/79 99 Anesthesia: General Endotracheal-GETA Mental Status: Awake Pain Control: Satisfactory Nausea/Vomiting: None Hydration: Adequate Anesthesia-Related Issues: No Anes. Related Issues
== END 2021-01-04 11:37 | disposition home or self-care (01) | DRG 403 ==
LOC: HO.SSSA 13:28 → HO.S3 13:58
PROVIDERS: Nurse Practitioner; Physician Assistant; Admitting Provider Surgery; PCP Family Medicine; Visit Provider Surgery
PROC: 0DB64Z3 Excision of Stomach, Percutaneous Endoscopic Approach, Vertical (ICD-10-PCS; CPT 43845; principal; 2021-01-03 09:50)
DX: E66.9 Obesity, unspecified (principal); K76.0 Fatty (change of) liver, not elsewhere classified; E28.2 Polycystic ovarian syndrome; K44.9 Diaphragmatic hernia without obstruction or gangrene; Z68.36 Body mass index [BMI] 36.0-36.9, adult; J45.909 Unspecified asthma, uncomplicated; F32.9 Major depressive disorder, single episode, unspecified; F41.9 Anxiety disorder, unspecified; Z87.891 Personal history of nicotine dependence; Z79.899 Other long term (current) drug therapy
CPT/HCPCS: 36415; 80048; 80323; 81003; 81025; 82040; 85025; 85610; 85730; 86850; 86900; 86901; 87635; 88307; 88342; 93005; 99024; C1776; J0131; J1100; J1170; J2250; J2370; J2405; J2765; J3010

== ENCOUNTER → 2021-01-18 14:20 | Outpatient (BNVA) | payer OTHER, SELFPAY | PROVIDERS: PCP Family Medicine; Referring Provider Family Medicine; Visit Provider Surgery | DX: Z98.84 Bariatric surgery status (principal); E55.9 Vitamin D deficiency, unspecified; Z87.891 Personal history of nicotine dependence; Z87.19 Personal history of other diseases of the digestive system; Z98.890 Other specified postprocedural states; Z79.899 Other long term (current) drug therapy | CPT/HCPCS: 99212 ==

== ENCOUNTER → 2021-02-19 14:26 | Outpatient (BNVA) | payer OTHER, SELFPAY | PROVIDERS: PCP Family Medicine; Visit Provider Physician Assistant | DX: E66.9 Obesity, unspecified (principal); Z98.84 Bariatric surgery status | CPT/HCPCS: 99212 ==

== ENCOUNTER → 2021-02-22 08:18 | Outpatient (BNVA) | payer OTHER, SELFPAY | PROVIDERS: PCP Family Medicine; Visit Provider Dietitian, Registered ==

== ENCOUNTER → 2021-04-05 10:04 | Outpatient (BNVA) | payer OTHER, SELFPAY | PROVIDERS: PCP Family Medicine; Referring Provider Family Medicine; Visit Provider Surgery | DX: Z98.84 Bariatric surgery status (principal); Z98.890 Other specified postprocedural states; Z87.19 Personal history of other diseases of the digestive system | CPT/HCPCS: 99212 ==

== ENCOUNTER → 2021-04-30 11:06 | Outpatient (BNVA) | payer OTHER, SELFPAY | PROVIDERS: PCP Family Medicine; Referring Provider Family Medicine; Visit Provider Physician Assistant Surgical | DX: E66.3 Overweight (principal); Z68.28 Body mass index [BMI] 28.0-28.9, adult | CPT/HCPCS: 99212 ==

== ENCOUNTER 2021-07-02 14:01 | Outpatient (REF) | payer OTHER, SELFPAY ==
[2021-07-02 14:55] LABS: MANUAL DIFF FLAG NO
[2021-07-02 15:07] LABS: Basophils Percent Auto 0.1 % (0-2); Eosinophils Absolute Auto 0.1 X10*3/uL (0.0-0.4); Eosinophils Percent Auto 0.6 % (0-4); Hemoglobin 13.6 g/dl (12.0-16.0); Imm Gran Abs Auto 0.03 X10*3/uL (0.00-0.03); Imm Gran Pct Auto 0.3 % (0.0-0.4); Lymphocytes Absolute Auto 2.1 X10*3/uL (1.2-4.9); Mean Corpuscular HGB Conc 32.4 g/dl (31.0-35.0); Mean Corpuscular Hemoglobin 29.1 pg (27.0-33.0); Mean Corpuscular Volume 89.9 fL (80.0-98.0); Mean Platelet Volume 9.8 fL (9.4-12.3); Monocytes Absolute Auto 0.7 X10*3/uL (0.1-1.2); Monocytes Percent Auto 6.8 % (2-11); Neutrophils Percent Auto 71.2 % (45-73); Platelet Count 358 X10*3/uL (160-400); Red Blood Count 4.67 X10*6/uL (4.20-5.50); Red Cell Distribution Width 13.2 % (11.0-16.0); White Blood Count 9.8 X10*3/uL (4.8-10.8)
[2021-07-02 15:14] LABS: Estimated Average Glucose 103 mg/dL; Hemoglobin A1c % 5.2 %
[2021-07-02 15:34] LABS: Anion Gap 11 (12-20); Blood Urea Nitrogen 11 mg/dL (9-16); C Reactive Protein 0.46 mg/dL (< or = 0.50); Calcium 10.1 mg/dL (8.4-10.2); Carbon Dioxide 28 mmol/L (22-29); Chloride 104 mmol/L (96-108); Cholesterol 204 mg/dL; Estimated Glomerular Filt Rate > 60; Glucose Random 82 mg/dL (60-115); HDL Cholesterol 33 mg/dL; Iron 67 mcg/dL (30-160); LDL Cholesterol Calculated 143 mg/dl; Percent Iron Saturation 19 % (15-50); Potassium 4.1 mmol/L (3.3-5.1); Sodium 139 mmol/L (135-145); Total Iron Binding Capacity 347 mcg/dL (228-428); Triglycerides 141 mg/dL; Unsaturated Iron Binding 280 ug/dL
[2021-07-02 15:59] LABS: Ferritin 124 ng/mL (10-122); TSH reflex Free T4 1.22 uIU/mL (0.32-4.0); Vitamin D 25-OH Total 20.9 ng/mL (>30)
[2021-07-02 16:12] LABS: Folate 7.8 ng/mL (> or = 4.0); Vitamin B12 419 pg/mL (200-900)
[2021-07-03 11:42] LABS: Calcium (PTHI) 9.9 mg/dL (8.6-10.2); PTHI 48 pg/mL (14-64)
[2021-07-06 09:51] LABS: Vitamin B1 10 nmol/L (8-30)
[2021-07-07 00:16] LABS: Zinc 79 mcg/dL (60-130)
[2021-07-10 22:17] LABS: Vitamin A 40 mcg/dL (38-98)
== END 2021-07-02 14:02 | disposition home or self-care (01) ==
LOC: HO.LAB 14:01
PROVIDERS: PCP Family Medicine; Referring Provider Family Medicine; Visit Provider Physician Assistant Surgical
DX: E66.3 Overweight (principal); K44.9 Diaphragmatic hernia without obstruction or gangrene; F17.200 Nicotine dependence, unspecified, uncomplicated; Z71.3 Dietary counseling and surveillance; Z98.890 Other specified postprocedural states; Z87.19 Personal history of other diseases of the digestive system; Z98.84 Bariatric surgery status
CPT/HCPCS: 36415; 80048; 80061; 82306; 82607; 82728; 82746; 83036; 83540; 83970; 84425; 84443; 84590; 84630; 85025; 86140; 99212